=== PATIENT | female | born 1960 | race Caucasian/White ===

== ENCOUNTER 2024-04-20 20:00 | Emergency (ER) | payer MEDICARE, SELFPAY ==
[2024-04-20 20:09] VITALS: BP 150/94
[2024-04-20 20:25] LABS: % Basophils 0.7 % (0-2); % Eosinophils 2.3 % (0-6); % Immature Granulocytes 0.2 % (0-0.5); % Lymphocytes 36.3 % (20.5-51.1); % Monocytes 7.9 % (1.7-9.3); % Neutrophils 52.6 % (42.2-75.2); Absolute Basophils 0.1 10^3/uL (0-0.2); Absolute Eosinophils 0.2 10^3/uL (0-0.7); Absolute Lymphocytes 3.1 10^3/uL (1.2-3.4); Absolute Monocytes 0.7 10^3/uL (0.1-0.6); Absolute Neutrophils 4.4 10^3/uL (1.4-6.5); Hematocrit 40.4 % (37.0-47.0); Hemoglobin 13.8 g/dL (12.0-16.0); Mean Corp Hgb Conc. 34.2 g/dL (33.0-37.0); Mean Corpuscular Hgb 31.8 pg (27.0-31.0); Mean Corpuscular Volume 93.1 fL (81.0-99.0); Mean Platelet Volume 9.3 fL (7.4-10.4); Nucleated Red Blood Cells % 0 %; Platelet Count 243 10^3/uL (130-400); Red Blood Cell Count 4.34 10^6/uL (4.20-5.40); Red Cell Dist. Width 12.3 % (11.5-14.5); White Blood Cell Count 8.4 10^3/uL (4.8-10.8)
[2024-04-20 20:46] LABS: ALT (SGPT) 12 U/L (0-35); AST (SGOT) 22 U/L (14-36); Albumin 4.9 g/dl (3.5-5.0); Alkaline Phosphatase 44 U/L (38-126); Blood Urea Nitrogen 26 mg/dl (7-17); Calcium 9.9 mg/dl (8.4-10.2); Carbon Dioxide 26 mmol/L (22-30); Glucose 99 mg/dl (70-99); Lipase 74 U/L (23-300); Total Bilirubin 0.5 mg/dl (0.2-1.3); Total Protein 8.1 g/dl (6.3-8.2); eGFR > 60.00
[2024-04-20 21:18] LABS: Chloride 104 mmol/L (98-107); Potassium 4.9 mmol/L (3.5-5.1); Sodium 138 mmol/L (135-145)
[2024-04-21 00:11] VITALS: BP 110/74
[2024-04-21 02:11] VITALS: BP 118/74
== END 2024-04-21 02:13 ==
LOC: EMR 20:00
PROVIDERS: Emergency Medicine
DX: R10.9 Unspecified abdominal pain (principal); R19.7 Diarrhea, unspecified
CPT/HCPCS: 80053; 83690; 85025

== ENCOUNTER 2024-06-16 11:54 | Emergency (ER) | payer MEDICARE, SELFPAY ==
[2024-06-16 11:57] VITALS: BP 116/51
[2024-06-16 13:43] VITALS: BP 125/80
[2024-06-16 14:02] LABS: % Eosinophils 1.2 % (0-6); % Immature Granulocytes 0.4 % (0-0.5); % Lymphocytes 19.5 % (20.5-51.1); % Monocytes 4.5 % (1.7-9.3); % Neutrophils 73.4 % (42.2-75.2); Absolute Basophils 0.1 10^3/uL (0-0.2); Absolute Eosinophils 0.1 10^3/uL (0-0.7); Absolute Lymphocytes 2.1 10^3/uL (1.2-3.4); Absolute Monocytes 0.5 10^3/uL (0.1-0.6); Hematocrit 46.7 % (37.0-47.0); Hemoglobin 15.8 g/dL (12.0-16.0); Mean Corp Hgb Conc. 33.8 g/dL (33.0-37.0); Mean Corpuscular Hgb 32.4 pg (27.0-31.0); Mean Corpuscular Volume 95.7 fL (81.0-99.0); Mean Platelet Volume 8.8 fL (7.4-10.4); Nucleated Red Blood Cells % 0 %; Platelet Count 282 10^3/uL (130-400); Red Blood Cell Count 4.88 10^6/uL (4.20-5.40); Red Cell Dist. Width 12.4 % (11.5-14.5); White Blood Cell Count 10.8 10^3/uL (4.8-10.8)
[2024-06-16 14:03] LABS: ALT (SGPT) 18 U/L (0-35); AST (SGOT) 24 U/L (14-36); Albumin 4.6 g/dl (3.5-5.0); Alkaline Phosphatase 46 U/L (38-126); Blood Urea Nitrogen 18 mg/dl (7-17); Calcium 10.6 mg/dl (8.4-10.2); Carbon Dioxide 27 mmol/L (22-30); Chloride 109 mmol/L (98-107); Glucose 139 mg/dl (70-99); Potassium 3.8 mmol/L (3.5-5.1); Sodium 147 mmol/L (135-145); Total Bilirubin 0.6 mg/dl (0.2-1.3); Total Protein 7.7 g/dl (6.3-8.2); eGFR > 60.00
[2024-06-16 14:14] LABS: NT-proBNP 207 pg/ml; Troponin I < 0.012 ng/ml
[2024-06-16] MEDS: NSS 1000 IV (15:21)
--- NOTE | 2024-06-16 17:04 | ED.GENMED ---
History of Present Illness
General
Chief Complaint: Breathing Problem
Source: patient
Exam Limitations: none
Time Seen by Provider: 06/16/24 13:04
Nursing documentation reviewed up to this point in time: agreed with
History of Present Illness
History of Present Illness:
63-year-old female past medical history of frequent headaches, hypertension presenting to the emergency department today with concerns mainly of shortness of breath over the past 3 to 4 days seems to be worse with exertion denies any specific chest
pain no shortness of breath at rest. Also has had mild discomfort of the right posterior neck sometimes shooting pain down the right arm. Denies any current symptoms. Denies any fevers recent illness or injuries.
Past History
Past History
ED Past Medical History: COPD, HTN and Other (headaches)
ED Past Surgical History: None
Social History
Tobacco: Smoker
Review of Systems
Review of Systems
Allergies reviewed?: Yes
All Other Systems: ROS reviewed and negative except as documented in HPI and ROS
Phy Exam
Physical Exam
Physical Exam:
GENERAL: Alert , in no apparent distress
EYE: pupils equal and reactive
NECK: Supple, no significant adenopathy.
ENT: o/p clr, mmm.
CARDIAC: Regular rate and rhythm .
LUNGS: Clear breath sounds bilaterally, no acute respiratory distress, no wheezes/rales/rhonchi
ABDOMEN: Soft, without focal tenderness, no r/g, no cvat
NEUROLOGICAL: Alert and oriented, no focal neuro deficits
SKIN: Warm and dry, skin intact.
MUSCULOSKELETAL: No edema, well perfused.
PSYCH: Normal and appropriate interaction.
Scores
Heart Failure Risk
Heart Failure Risk Score: Not Applicable
Course
Orders/Labs/Results
Orders:
Orders
06/16/24 13:36
Chest [CR Chest - 2 Views ] Urgent
Comment:
Reason For Exam: sob
06/16/24 13:41
EKG [Electrocardiogram (*1)] Urgent
Reason for Study: Shortness of Breath
EKG- Treatment ONCE
Cervical Spine 4 or 5 Vw [CR Cervical Spine 4 Or 5 Vw] Urgent
Comment:
Reason For Exam: neck pain
06/16/24 13:45
CBC/With Diff [Complete Blood Count/With Diff] Urgent
CMP [Comprehensive Metabolic Panel] Urgent
Pro-BNP [NT-proBNP] Urgent
Troponin I Urgent
06/16/24 15:13
CT Chest PE Study Urgent
Comment:
Reason For Exam: CHESt pain SOB, high risk PE
0.9% Sodium Chloride 1000 ml [Nss] 1,000 ml IV BOLUS
Abnormal Lab Results
06/16/24
13:45
MCH 32.4 H pg
(27.0-31.0)
Absolute Neuts (auto) 8.0 H 10^3/uL
(1.4-6.5)
Lymphocytes % 19.5 L %
(20.5-51.1)
Sodium 147 H mmol/L
(135-145)
Chloride 109 H mmol/L
(98-107)
BUN 18 H mg/dl
(7-17)
Glucose 139 H mg/dl
(70-99)
Calcium 10.6 H mg/dl
(8.4-10.2)
06/16/24 13:45
06/16/24 13:45
Vital Signs
Initial and Last Documented VS:
Initial Vital Signs
Temp Pulse Resp BP Pulse Ox
98.2 F 117 16 116/51 99
06/16/24 11:57 06/16/24 11:57 06/16/24 11:57 06/16/24 11:57 06/16/24 11:57
Last Documented Vital Signs
Temp Pulse Resp BP Pulse Ox
98.2 F 75 18 125/80 98
06/16/24 11:57 06/16/24 16:45 06/16/24 16:45 06/16/24 13:43 06/16/24 16:45
MDM/Problems Addressed
MDM/Problems Addressed:
63-year-old female presenting to the emergency department with concerns of worsening shortness of breath over the past 3 to 4 days. Here patient generally well-appearing no distress lungs are clear initially was tachycardic but improving into the
70s after receiving a liter of fluid. Labs show potential mild dehydration with elevated BUN to creatinine ratio and elevated sodium level. Otherwise troponin negative BNP low. She did have a CT scan of the chest without emergent findings.
Patient was found to have likely emphysema and was a longtime smoker. It was explained to the patient she may be having intermittent symptoms secondary to emphysema. She was written for an inhaler and advised for close outpatient follow-up.
Return precautions given.
*Critical Care Note
Total Time (30-74mins, 75-104mins- exclusive of procedures): Not Applicable
ED Attending Note
-
Portions of this chart may have been created with voice recognition software.� Occasional wrong word or��sound alike� substitutions may have occurred due to the inherent limitations of voice recognition software.
Discharge Plan
Departure
Patient Disposition: Home (Routine Discharge)
Date of Disposition: 06/16/24
Time of Disposition: 17:04
Patient with high blood pressure during this ER visit?: No
Condition: Good
Covid-19: Not Applicable
Discharge Problem:
Emphysema of lung, Neck pain
Instructions: Chronic obstructive pulmonary disease (COPD)
Prescriptions:
New
albuterol sulfate 90 mcg/actuation HFA aerosol inhaler
2 puff inhalation Q6H PRN (Reason: shortness of breath or wheezing) Qty: 8.5 0RF
No Action
mupirocin 1 APPLIC ointment
1 applic topical TID Qty: 1 0RF
prednisone 50 MG tablet
50 mg PO DAILY Qty: 5 0RF
albuterol sulfate [Proventil HFA] 90 MCG/PUFF HFA aerosol inhaler
1 puff inhalation Q4HPRN PRN (Reason: shortness of breath) Qty: 1 0RF
Referrals:
Trisha Lugo DO [Family Provider] -
Activity Restrictions/Additional Instructions:
You came to the emergency department today with concerns of shortness of breath. Here you are found to have emphysema but no other emergent findings. Please follow closely with the primary care doctor within 1 to 2 weeks. Return for any
worsening, new or concerning symptoms.
Interventions
Interventions:
*Risk Screen - Suicide Last Done: 06/16/24 11:57
*Neglect/Abuse Screening Last Done: 06/16/24 11:57
ED- Cardiac Assessment Last Done: 06/16/24 12:30
ED- Pulmonary Assessment Last Done: 06/16/24 12:30
Discharge Date and Time
Print Language: GAMBIAN
== END 2024-06-16 17:18 | disposition home or self-care (01) ==
LOC: EMR 11:54
PROVIDERS: Physician Assistant; EMERGENCY PHYSICIAN Emergency Medicine; FAMILY PHYSICIAN Family Medicine
DX: J43.9 Emphysema, unspecified (principal); M54.2 Cervicalgia; I10 Essential (primary) hypertension; F17.200 Nicotine dependence, unspecified, uncomplicated
CPT/HCPCS: 99285; 96360; 71046; 71275; 72050; 80053; 83880; 84484; 85025; 93005; Q9967

== ENCOUNTER 2024-06-17 14:04 | Emergency (ER) | payer MEDICARE, SELFPAY ==
[2024-06-17 14:12] VITALS: BP 159/83
--- NOTE | 2024-06-17 15:27 | ED.GENMED ---
History of Present Illness
<LEE Curiel - Last Filed: 06/17/24 19:26>
General
Chief Complaint: Headache
Source: patient
Exam Limitations: none
Time Seen by Provider: 06/17/24 14:48
Nursing documentation reviewed up to this point in time: agreed with except (Patient denies any jaw pain.)
History of Present Illness
History of Present Illness:
Patient is a 63-year-old female who presents to the ER for evaluation of right sided neck pain. Patient tells me she was here yesterday for the same thing however it is documented yesterday that her primary complaint was shortness of breath. It
was documented that she did have right posterior neck pain that did shoot down her right arm and she denied any trauma.
Patient yesterday was worked up for PE. Today complains of pain in the right neck shooting down her arm and into her right head. Triage note reports that she had pain in her jaw but she denies this for me. She denies any chest pain or
shortness of she reports on Saturday night 6 days ago she was moving trash cans and is not sure if she injured herself at that time. She denies any trauma. She is not on blood thinners. she does complain of a headache denies any nausea vomiting
fever Recent illness fever chills.
She denies any upper extremity numbness tingling weakness.
Past History
<LEE Curiel - Last Filed: 06/17/24 19:26>
Past History
ED Past Medical History: COPD, HTN and Other (headaches)
ED Past Surgical History: None
Social History
Tobacco: Smoker
Review of Systems
<LEE Curiel - Last Filed: 06/17/24 19:26>
Review of Systems
Allergies reviewed?: Yes
All Other Systems: ROS reviewed and negative except as documented in HPI and ROS
Constitutional: Reports no symptoms; Denies fever, fatigue or chills
Respiratory: Reports no symptoms
Cardiac: Reports no symptoms
ABD/GI: Reports no symptoms; Denies nausea or vomiting
: Reports no symptoms
Musculoskeletal: Reports neck pain (right sided neck pain radiatin got right arm )
Neurological: Reports headache; Denies dizzy
Hematologic/Lymphatic: Reports no symptoms
Psychiatric: Reports no symptoms
Phy Exam
<LEE Curiel - Last Filed: 06/17/24 19:26>
General Physical Exam
General Presentation: no apparent distress
General age: appears stated age
General Skin: warm and dry
General Habitus: normal
General Mental: alert
General Hydration: appears well hydrated
Cardiovascular Exam
Cardiovascular Exam: regular rate/rhythm, no murmur and normal peripheral pulses
Pulmonary Exam
Pulmonary Exam: lungs clear and no respiratory distress
Neurological Exam
Neurological Exam: alert, oriented x3, no motor deficits, no sensory deficits and other (No deficit in strength to upper/ lower extremities)
Musculoskeletal Exam
Musculoskeletal Exam: other (Mildly tender along the muscles of the right lateral neck however good range of motion)
Skin Exam
Skin Exam: normal color and warm/dry
Psychiatric Exam
Psychiatric Exam: normal mood/affect
Course
<LEE Curiel - Last Filed: 06/17/24 19:26>
Orders/Labs/Results
Orders:
Orders
06/17/24 14:06
EKG [Electrocardiogram (*1)] Urgent
Reason for Study: Other
Other Reason for Exam: neck and shoulder pain
06/17/24 14:07
EKG- Treatment ONCE
06/17/24 15:41
CT Head & Neck Angio W/wo IV Urgent
Comment:
Reason For Exam: right sided neck pain/headache
IV Insert/Care/Rem.- Treatment PRN
0.9% Sodium Chloride 1000 ml [Nss] 1,000 ml IV BOLUS
06/17/24 15:42
Cardiac Monitoring- Treatment ONCE
06/17/24 16:24
Complete Blood Count/With Diff Urgent
Comprehensive Metabolic Panel Urgent
Troponin I Urgent
06/17/24 19:09
Ketorolac [Toradol] 15 mg IV NOW STA
Abnormal Lab Results
06/17/24
16:24
MCH 32.5 H pg
(27.0-31.0)
Chloride 110 H mmol/L
(98-107)
BUN 19 H mg/dl
(7-17)
Calcium 10.5 H mg/dl
(8.4-10.2)
06/17/24 16:24
06/17/24 16:24
Vital Signs
Initial and Last Documented VS:
Initial Vital Signs
Temp Pulse Resp BP Pulse Ox
98 F 81 18 159/83 99
06/17/24 14:12 06/17/24 14:12 06/17/24 14:12 06/17/24 14:12 06/17/24 14:12
Last Documented Vital Signs
Temp Pulse Resp BP Pulse Ox
98 F 81 18 140/63 97
06/17/24 14:12 06/17/24 14:12 06/17/24 14:12 06/17/24 17:02 06/17/24 17:15
Post Production Assistant consulted with Physician
Post Production Assistant consulted with physician?: Yes
Name of Physician Consulted: Amando
<Franky Goel, DO - Last Filed: 06/17/24 20:33>
Orders/Labs/Results
Orders:
Orders
06/17/24 14:06
EKG [Electrocardiogram (*1)] Urgent
Reason for Study: Other
Other Reason for Exam: neck and shoulder pain
06/17/24 14:07
EKG- Treatment ONCE
06/17/24 15:41
CT Head & Neck Angio W/wo IV Urgent
Comment:
Reason For Exam: right sided neck pain/headache
IV Insert/Care/Rem.- Treatment PRN
0.9% Sodium Chloride 1000 ml [Nss] 1,000 ml IV BOLUS
06/17/24 15:42
Cardiac Monitoring- Treatment ONCE
06/17/24 16:24
Complete Blood Count/With Diff Urgent
Comprehensive Metabolic Panel Urgent
Troponin I Urgent
06/17/24 19:09
Ketorolac [Toradol] 15 mg IV NOW STA
Abnormal Lab Results
06/17/24
16:24
MCH 32.5 H pg
(27.0-31.0)
Chloride 110 H mmol/L
(98-107)
BUN 19 H mg/dl
(7-17)
Calcium 10.5 H mg/dl
(8.4-10.2)
06/17/24 16:24
06/17/24 16:24
Vital Signs
Initial and Last Documented VS:
Initial Vital Signs
Temp Pulse Resp BP Pulse Ox
98 F 81 18 159/83 99
06/17/24 14:12 06/17/24 14:12 06/17/24 14:12 06/17/24 14:12 06/17/24 14:12
Last Documented Vital Signs
Temp Pulse Resp BP Pulse Ox
98 F 81 18 140/63 97
06/17/24 14:12 06/17/24 14:12 06/17/24 14:12 06/17/24 17:02 06/17/24 17:15
<LEE Curiel - Last Filed: 06/17/24 19:26>
MDM/Problems Addressed
MDM/Problems Addressed:
As documented patient is a 63-year-old female who complains of right lateral neck pain that radiates down to her arm. She was seen here yesterday for shortness of breath though she did mention neck pain as well. She had a negative workup for PE.
She presents back today with some neck pain. She reports he was moving the trash can several days ago believes she may have injured herself though denies any trauma. On exam she presents with very musculoskeletal neck pain. She denies any fever
chills she denies any chest pain shortness of breath she has no meningismus. No neurological deficits. Patient had a CT head and neck angio which was negative. Patient was given fluids and on reexam prior to given Toradol she was resting very
comfortably reports she felt much better. She was given a dose of Toradol here likely muscular stable for discharge home. Case reviewed with ED physician who evaluated patient and agrees with assessment and plan
<LEE Curiel - Last Filed: 06/17/24 19:26>
*Radiology
Radiology exam reviewed: radiology read reviewed
*Pulse Oximetry
Patient hypoxic: no
*EKG
Interpreted by ED Provider?: Yes
Interpretation: normal
Comparison EKG: no changes
Heart Rate: 79
Rate: normal
Rhythm: sinus
Ischemia: no ischemia
*Critical Care Note
Total Time (30-74mins, 75-104mins- exclusive of procedures): Not Applicable
Data Reviewed
Review of Other/Old Records Reveals: Labs, Radiology Studies and Other (ED visit from yesterday, labs and imaging )
ED Attending Note
<LEE Curiel - Last Filed: 06/17/24 19:26>
-
Portions of this chart may have been created with voice recognition software.� Occasional wrong word or��sound alike� substitutions may have occurred due to the inherent limitations of voice recognition software.
<Franky Goel DO - Last Filed: 06/17/24 20:33>
ED Attending Note
Patient seen and examined by attending physician: Yes
ED Attending Note:
I reviewed and agree with history and treatment plan by Kelli Eduardo. My exam revealed 63-year-old female appears uncomfortable, afebrile. Tender palpation at right shoulder and neck. No bruit or thrill noted on carotid arteries. Patient has
abnormal speech pattern, which she states is chronic for her. Will evaluate for dissection or other deep infectious process.
No acute findings on CT neck angiography. Patient ambulates with difficulty. No neurologic deficits. Stable for discharge.
Discharge Plan
Departure
Patient Disposition: Home (Routine Discharge)
Date of Disposition: 06/17/24
Time of Disposition: 19:24
Patient with high blood pressure during this ER visit?: Yes
Condition: Fair
Covid-19: Not Applicable
Discharge Problem:
Neck pain, muscle and bone pain
Instructions: Muscle, joint, and bone pain - Discharge instructions, BLOOD PRESSURE
Prescriptions:
No Action
mupirocin 1 APPLIC ointment
1 applic topical TID Qty: 1 0RF
prednisone 50 MG tablet
50 mg PO DAILY Qty: 5 0RF
albuterol sulfate [Proventil HFA] 90 MCG/PUFF HFA aerosol inhaler
1 puff inhalation Q4HPRN PRN (Reason: shortness of breath) Qty: 1 0RF
albuterol sulfate 90 mcg/actuation HFA aerosol inhaler
2 puff inhalation Q6H PRN (Reason: shortness of breath or wheezing) Qty: 8.5 0RF
Referrals:
Trisha Lugo DO [Family Provider] -
Activity Restrictions/Additional Instructions:
As discussed you may take ibuprofen 400 mg every 8 hours with food and alternate with Tylenol. Follow-up with family doctor next of days return if any worsening of symptoms.
Interventions
Interventions:
*Risk Screen - Suicide Last Done: 06/17/24 14:12
*Neglect/Abuse Screening Last Done: 06/17/24 14:12
*ED- Fall Risk Assessment Last Done: 06/17/24 15:36
*ED COVID-19 Vaccine History Last Done: 06/17/24 15:36
*Nursing Disposition Last Done: 06/17/24 20:10
ED- Neurological Assessment Last Done: 06/17/24 15:36
Discharge Date and Time
Discharge Date/Time: 06/17/24 20:11
Print Language: MAORI
[2024-06-17 15:32] VITALS: BP 130/84
[2024-06-17 15:34] VITALS: BMI 25.1
[2024-06-17 16:00] VITALS: BP 135/86
[2024-06-17 16:50] LABS: ALT (SGPT) 16 U/L (0-35); AST (SGOT) 22 U/L (14-36); Albumin 4.6 g/dl (3.5-5.0); Alkaline Phosphatase 60 U/L (38-126); Blood Urea Nitrogen 19 mg/dl (7-17); Calcium 10.5 mg/dl (8.4-10.2); Carbon Dioxide 28 mmol/L (22-30); Chloride 110 mmol/L (98-107); Estimated Creatinine Clearance 45 ml/min; Glucose 86 mg/dl (70-99); Potassium 4.6 mmol/L (3.5-5.1); Sodium 145 mmol/L (135-145); Total Bilirubin 0.4 mg/dl (0.2-1.3); Total Protein 7.2 g/dl (6.3-8.2); eGFR > 60.00
[2024-06-17 17:02] VITALS: BP 140/63
[2024-06-17] MEDS: NSS 1000 IV (17:04)
[2024-06-17 17:07] LABS: Troponin I < 0.012 ng/ml
[2024-06-17 17:10] LABS: % Basophils 1.5 % (0-2); % Eosinophils 3.4 % (0-6); % Immature Granulocytes 0.3 % (0-0.5); % Lymphocytes 34.8 % (20.5-51.1); % Monocytes 7.3 % (1.7-9.3); % Neutrophils 52.7 % (42.2-75.2); Absolute Basophils 0.1 10^3/uL (0-0.2); Absolute Eosinophils 0.3 10^3/uL (0-0.7); Absolute Lymphocytes 2.5 10^3/uL (1.2-3.4); Absolute Monocytes 0.5 10^3/uL (0.1-0.6); Absolute Neutrophils 3.9 10^3/uL (1.4-6.5); Hematocrit 42.3 % (37.0-47.0); Hemoglobin 14.2 g/dL (12.0-16.0); Mean Corp Hgb Conc. 33.6 g/dL (33.0-37.0); Mean Corpuscular Hgb 32.5 pg (27.0-31.0); Mean Corpuscular Volume 96.8 fL (81.0-99.0); Mean Platelet Volume 8.8 fL (7.4-10.4); Nucleated Red Blood Cells % 0 %; Platelet Count 278 10^3/uL (130-400); Red Blood Cell Count 4.37 10^6/uL (4.20-5.40); Red Cell Dist. Width 12.4 % (11.5-14.5); White Blood Cell Count 7.3 10^3/uL (4.8-10.8)
[2024-06-17] MEDS: TORADOL 15 MG IV (19:29)
== END 2024-06-17 20:11 | disposition home or self-care (01) ==
LOC: EMR 14:04
PROVIDERS: Nurse Practitioner; EMERGENCY PHYSICIAN Emergency Medicine; FAMILY PHYSICIAN Family Medicine
DX: M54.2 Cervicalgia (principal); M89.8X9 Other specified disorders of bone, unspecified site; F17.200 Nicotine dependence, unspecified, uncomplicated; I10 Essential (primary) hypertension
CPT/HCPCS: 99285; 96374; 96361; 70496; 70498; 80053; 84484; 85025; 93005; Q9967

== ENCOUNTER 2025-03-07 05:19 | Emergency (ER) | payer MEDICAID, SELFPAY ==
[2025-03-07 05:22] VITALS: BP 121/108
[2025-03-07 05:29] VITALS: BP 121/108
[2025-03-07 05:36] VITALS: BMI 25.5
[2025-03-07 07:06] VITALS: BP 115/87
[2025-03-07] MEDS: ATIVAN 1 MG PO (08:19)
--- NOTE | 2025-03-07 10:55 | ED.GENMED ---
History of Present Illness
General
Chief Complaint: Skin Problem
Time Seen by Provider: 03/07/25 07:55
History of Present Illness
History of Present Illness:
see MDM
Past History
Past History
ED Past Medical History: COPD, HTN and Other (headaches)
ED Past Surgical History: None
Social History
Tobacco: Smoker
Phy Exam
Physical Exam
Physical Exam:
see MDM
Course
Orders/Labs/Results
Orders:
Orders
03/07/25 08:10
Lorazepam [Ativan] 1 mg PO NOW STA
Vital Signs
Initial and Last Documented VS:
Initial Vital Signs
Temp Pulse Resp BP Pulse Ox
36.9 C 99 18 121/108 99
03/07/25 05:22 03/07/25 05:22 03/07/25 05:22 03/07/25 05:22 03/07/25 05:22
Last Documented Vital Signs
Temp Pulse Resp BP Pulse Ox
37.0 C 75 20 126/73 99
03/07/25 11:18 03/07/25 11:18 03/07/25 11:18 03/07/25 11:18 03/07/25 11:18
MDM/Problems Addressed
Differential Diagnosis Includes:
see MDM
MDM/Problems Addressed:
Note:
CHIEF COMPLAINT(S)
Skin picking and abdominal discomfort.
HISTORY OF PRESENT ILLNESS
The patient is a 64-year-old female who presents to the emergency department with concerns about skin picking due to her feeling worms on her. The patient appears to have excoriated her skin, particularly on the face, which is described as raw. She
reports using crystal methamphetamine, which she smokes, and expresses delusions about worms causing her skin condition. During the examination, she was asked not to pick at her skin repeatedly. The patient did not specify when she last used crystal
meth but was oriented to the day and surroundings. She also holds her belly, indicating discomfort or a possible underlying issue.
pt last used about 2 days ago
she has not slept
she lives with someone but he is never home
SOCIAL DETERMINANTS AFFECTING HEALTH
The patient reports current use of crystal methamphetamine, which she smokes. She denies alcohol and benzodiazepine use. Theres no specific mention of her living situation or employment status, but substance use is a significant factor in her
healthcare.
REVIEW OF SYSTEMS
- Skin: Patient reports seeing worms and has evidence of excoriated skin.
- Gastrointestinal: Reports abdominal discomfort, holds belly.
- Psychological: Exhibits delusions of parasitosis related to worm infestation possibly due to crystal methamphetamine use.
PHYSICAL EXAM
GENERAL: Alert ,shifting, picking at her skin on her face
hallucinations
EYE: pupils equal and reactive
NECK: Supple
ENT: o/p clr, mmm.
corners of her mouth with abrsion from picking
CARDIAC: Regular rate and rhythm .
LUNGS: Clear breath sounds bilaterally, no acute respiratory distress, no wheezes/rales/rhonchi
ABDOMEN: Soft, without focal tenderness, no r/g, no cvat, normal bowel sounds
NEUROLOGICAL: Alert and oriented, no focal neuro deficits, tactile hallucinations
SKIN: Warm and dry, skin intact.
MUSCULOSKELETAL: No edema, well perfused. neg song's sign
PSYCH: Normal and appropriate interaction.
Nursing notes reviewed and vital signs reviewed.
PROBLEM LIST
Acute:
- Excoriated skin with delusional parasitosis.
- Abdominal discomfort.
- Active use of crystal methamphetamine.
PLAN
Administer medication to calm the patient and address her nervousness related to delusional thoughts and hallucinations.
DIFFERENTIAL DIAGNOSIS
The Differential Diagnosis includes, in no particular order and is not limited to:
1. Delusional parasitosis (potentially drug-induced)
2. Methamphetamine-induced psychotic disorder
3. Contact dermatitis or secondary infection from skin picking
4. Substance use disorder
5. Abdominal pain secondary to stimulant use
6. Body-focused repetitive behaviors
7. Psychotic disorder secondary to substance use
8. Skin infection or cellulitis
9. Anxiety disorder
10. Somatic symptom disorder
64 y/o F
methamephamine abuse
used 2 days ago
feels tactile halluciations, picking her skin around her mouth and her toes
no signs of infection
there are no worms though she is convinced she has
pt hasn't slept in a few days
she was given ativan and slept
she woke up alert and oriented and calm
d/c
*Pulse Oximetry
SaO2: 99
Oxygen Mode of Delivery: Room air
Patient hypoxic: no (99)
*Critical Care Note
Total Time (30-74mins, 75-104mins- exclusive of procedures): Not Applicable
ED Attending Note
-
Portions of this chart may have been created with voice recognition software.� Occasional wrong word or��sound alike� substitutions may have occurred due to the inherent limitations of voice recognition software.
Discharge Plan
Departure
Patient Disposition: Home (Routine Discharge)
Date of Disposition: 03/07/25
Time of Disposition: 10:56
Patient with high blood pressure during this ER visit?: No
Condition: Fair
Covid-19: Not Applicable
Discharge Problem:
Tactile hallucination, Methamphetamine abuse
Instructions: Drug and Alcohol Abuse Information
Prescriptions:
No Action
albuterol sulfate 90 mcg/actuation HFA aerosol inhaler
2 puff inhalation Q6H PRN (Reason: shortness of breath or wheezing) Qty: 8.5 0RF
Referrals:
UNKNOWN - PT DOES,NOT KNOW [Family Provider]
Activity Restrictions/Additional Instructions:
you were seen and evaluated, you were given a dose of Ativan to help with your anxiety and you felt better and were able to sleep. Please avoid using crystal meth
Interventions
Interventions:
*General Assessment Last Done: 03/07/25 05:30
*Neglect/Abuse Screening Last Done: 03/07/25 05:30
*ED COVID-19 Vaccine History Last Done: 03/07/25 05:30
*ED Influenza Vaccine History Last Done: 03/07/25 05:30
[facility] Risk Assessment Tool Last Done: 03/07/25 05:37
*Risk Screen - Suicide (C-SSRS) Last Done: 03/07/25 05:30
*Nursing Disposition Last Done: 03/07/25 11:20
ED-Skin Assessment Last Done: 03/07/25 05:30
Discharge Date and Time
Discharge Date/Time: 03/07/25 12:05
Print Language: YORUBA
[2025-03-07 11:18] VITALS: BP 126/73
== END 2025-03-07 12:05 | disposition home or self-care (01) ==
LOC: EMR 05:19
PROVIDERS: EMERGENCY PHYSICIAN Emergency Medicine
DX: F15.151 Other stimulant abuse with stimulant-induced psychotic disorder with hallucinations (principal); I10 Essential (primary) hypertension; J44.9 Chronic obstructive pulmonary disease, unspecified; F17.200 Nicotine dependence, unspecified, uncomplicated
CPT/HCPCS: 99283